=== PATIENT | female | born 1990 | race African-American/Black ===

== ENCOUNTER 2020-12-30 11:54 | Inpatient (IN) ==
[2020-12-30] MEDS ORDERED: SODIUM CHLORIDE 0.9% 1000ML 1,000 ML IV ONE (12:22)
--- NOTE | 2020-12-30 12:28 | Emergency Department Note ---
History of Present Illness General Chief complaint: Hyperglycemia Stated complaint: HYPERGLYCEMIA Time Seen by Provider: 12/30/20 12:13 Source: patient Mode of arrival: ambulatory Limitations: no limitations History of Present Illness This patient is a 30-year-old type I diabetic comes in after having hyperglycemia. She said she change her pump site overnight realized when she was tailgating that she was not getting insulin there was liquid around the site. And she removed it and realized the cannula was not under the skin. She tried to go back to her hotel but could not get there because of traffic so she came here she is not try to take any corrective insulin as she had none with her. She has had some nausea and emesis x1. No chest pain or shortness of breath. No exposure to Covid she was feeling fine prior to this. She has been vaccinated. She has had some frequency of urination. She tells me she has been in DKA as a child but does not feel she is likely in DKA Home Medications Medication Instructions Recorded Confirmed Type Insulin Aspart (Novolog) 100 unit SC DIRECTED #0 08/03/09 12/30/20 History buspirone 10 mg tablet 10 mg PO TID 12/30/20 12/30/20 History Allergies Allergy/AdvReac Type Severity Reaction Status Date / Time peanut Allergy Severe ANAPHYLAXIS Verified 12/30/20 14:36 Past Med/Surg History Family History Mother Asthma Social History Smoking Status: Never smoker Hx Alcohol Use: Yes Hx Substance Use: Yes Feels Safe at Home: Yes Immunizations: Past menstrualtype 1 diabetes Social [place] is in town tailg[place] and recruiting Review of Systems A total of 10 systems reviewed and were otherwise negative Physical Exam Vital Signs Vital Signs - 24 hr 12/30/20 12:00 12/30/20 13:06 12/30/20 13:07 Temperature 36.6 C Temperature Source Oral Pulse Rate 124 H 129 H Pulse Rate [Right Finger] 129 H Pulse Rhythm Regular Pulse Rhythm [Right Finger] Pulse Strength Normal Pulse Strength [Right Finger] Respiratory Rate 18 21 Respiratory Effort / Characteristics Non-Labored Spontaneous Non-Labored Spontaneous Respiratory Depth Normal Normal Respiratory Pattern Regular Regular Blood Pressure 128/71 Blood Pressure [Right Arm] 127/76 Blood Pressure Mean 90 Blood Pressure Mean [Right Arm] 93 Blood Pressure Position Lying Blood Pressure Position [Right Arm] Sitting Pulse Oximetry 99 99 99 Oxygen Delivery Method Room Air Room Air Room Air Sepsis Recent Fever Within 48 Hours No Sepsis New/Unexplained Change in Mental Status N/A Sepsis Action Taken by Nursing No Action Required 12/30/20 14:00 Temperature Temperature Source Pulse Rate Pulse Rate [Right Finger] 122 H Pulse Rhythm Pulse Rhythm [Right Finger] Regular Pulse Strength Pulse Strength [Right Finger] Normal Respiratory Rate 20 Respiratory Effort / Characteristics Non-Labored Spontaneous Respiratory Depth Normal Respiratory Pattern Regular Blood Pressure Blood Pressure [Right Arm] 98/46 L Blood Pressure Mean Blood Pressure Mean [Right Arm] 63 Blood Pressure Position Blood Pressure Position [Right Arm] Lying Pulse Oximetry 98 Oxygen Delivery Method Room Air Sepsis Recent Fever Within 48 Hours Sepsis New/Unexplained Change in Mental Status Sepsis Action Taken by Nursing General: Well developed well nourished young female who appears in no acute distress, breathing comfortably on room air. Normal speech HEENT: Normal cephalic atraumatic. Pupils are equal round and reactive to light. Extraocular movements are intact. Oropharynx is pink with moist mucous membranes. No swelling of the mouth lips or tongue. Neck: Supple with a midline trachea. No meningeal signs or stiffness, no JVD or bruits. No Stridor. Chest: Clear to auscultation bilaterally. No wheezes or rhonchi. No increased work of breathing. Heart: Tachycardic but regular rate and rhythm without murmurs or gallops. Abdomen: Soft nontender, nondistended without rebound guarding or rigidity. Extremities: No cyanosis clubbing or edema. No calf tenderness or assymetry Spine/Back. Non tender to palpation. No CVA tenderness Skin: Good turgor without rashes. Neurologic exam: Cranial nerves two through 12 are intact. Motor and sensation are intact and symmetrical throughout. Course Administered Medications Insulin Human Regular 250 (units/ Sodium Chloride) 250 mls @ 4.7 mls/hr IV .Q24H [facility]; Protocol Stop: 01/29/21 13:44 Last Titration: 12/30/20 16:54 Dose: 4.7 units/hr, 4.7 mls/hr Documented by: [id number] Cosigned by: [id number] Titration: 12/30/20 16:22 Dose: 0 units/hr, 0 mls/hr Documented by: [id number] Cosigned by: [id number] Titration: 12/30/20 15:23 Dose: 7.8 units/hr, 7.8 mls/hr Documented by: [id number] Cosigned by: [id number] Admin: 12/30/20 14:20 Dose: 9.8 units/hr, 9.8 mls/hr Documented by: [id number] Cosigned by: [id number] Potassium Chloride/Dextrose/Sod Cl (D5w And 1/2nss + 20meq Kcl) 20 meq in 1,000 mls @ 150 mls/hr IV .Q6H40M [facility] Stop: 01/29/21 16:44 Last Admin: 12/30/20 16:54 Dose: 150 mls/hr Documented by: [id number] Discontinued Medications Sodium Chloride (Nss 1000ml) 1,000 mls @ 999 mls/hr IV .Q1H1M ONE Stop: 12/30/20 13:22 Last Infusion: 12/30/20 14:11 Dose: 0 mls/hr Documented by: [id number] Admin: 12/30/20 12:37 Dose: 999 mls/hr Documented by: [id number] Potassium Chloride/Sodium Chloride (1/2 Nss + 20meq Kcl 1000ml) 20 meq in 1,000 mls @ 150 mls/hr IV .Q6H40M [facility] Stop: 01/29/21 13:59 Last Admin: 12/30/20 14:20 Dose: 150 mls/hr Documented by: [id number] Insulin Aspart (Insulin Aspart Per Unit) 10 units SC NOW ONE Stop: 12/30/20 12:31 Last Admin: 12/30/20 12:37 Dose: 10 units Documented by: [id number] Cosigned by: [id number] Insulin Human Regular (Novolin-R Bolus From Bag) 5 units IV ONE ONE Stop: 12/30/20 14:16 Last Admin: 12/30/20 14:25 Dose: 5 units Documented by: [id number] Cosigned by: [id number] Ondansetron HCl (Ondansetron Inj 2 Mg/Ml 2 Ml Vial) 4 mg IV NOW STA Stop: 12/30/20 13:03 Last Admin: 12/30/20 13:04 Dose: 4 mg Documented by: [id number] Critical Care Time Critical Care Time: Yes Total Critical Care Time: 30 Due to the patient's diabetic ketoacidosis, tachycardia, need for IV fluids IV insulin frequent blood testing and monitoring, I have personally spent greater than 30 minutes of critical care time in the direct management of this patient. This includes bedside care, interpretation of diagnostic studies, and testing, discussion with consultants, patient, and family members, and other required patient management activities. This 30 minutes is in excess of all separately billable procedures. Medical Decision Making Differential Diagnosis DKA, hyperglycemia, dehydration, electrolyte or metabolic abnormality, infection Medical Records Attestation: I reviewed the patient's medical records. Home Medications Current Medication List: was personally reviewed by me Laboratory Data Attestation: I reviewed the patient's lab results. Result diagrams: 12/30/20 12:50 12/30/20 12:50 Lab Results 12/30/20 12/30/20 12/30/20 Range/Units 12:14 12:15 12:50 WBC 12.41 H (4.8-10.8) K/uL RBC 4.76 (4.2-5.4) M/uL Hgb 12.1 (12.0-16.0) g/dL Hct 39.1 (37-47) % MCV 82.1 (80-100) fL MCH 25.4 (25-34) pg MCHC 30.9 L (32-36) g/dL RDW Std Deviation 44.9 (36.4-46.3) fL RDW Coeff of [place] 14.9 H (11.5-14.5) % Plt Count 275 (130-400) K/uL MPV 10.3 (7.4-10.4) fL Immature Gran % (Auto) 0.4 % Neut % (Auto) 83.2 % Lymph % (Auto) 9.8 % [place] % (Auto) 5.9 % Eos % (Auto) 0.5 % Baso % (Auto) 0.2 % Neut # (Auto) 10.33 H (1.4-6.5) K/uL Lymph # (Auto) 1.22 (1.2-3.4) K/uL [place] # (Auto) 0.73 H (0.11-0.59) K/uL Eos # (Auto) 0.06 (0-0.5) K/uL Baso # (Auto) 0.02 (0-0.2) K/uL Immature Gran # (Auto) 0.05 H (0.00-0.02) K/uL VBG pH (7.36-7.41) VBG pCO2 (38-50) mmHg VBG pO2 mmHg VBG HCO3 mmol/L VBG O2 Saturation % VBG Base Excess mEq/L Barometric Pressure mm/Hg Sodium (136-145) mmol/L Potassium (3.5-5.1) mmol/L Chloride (98-107) mmol/L Carbon Dioxide (21-32) mmol/L Anion Gap (3-11) BUN (7-18) mg/dl Creatinine (0.6-1.2) mg/dl Est Cr Clr Drug Dosing ml/min Est GFR ( Amer) ml/min Est GFR (Non-Af Amer) ml/min BUN/Creatinine Ratio (10-20) Glucose (70-99) mg/dl POC Glucose 560 H* (70-99) mg/dl Calcium (8.5-10.1) mg/dl Total Bilirubin (0.2-1) mg/dl AST (15-37) U/L ALT (12-78) U/L Alkaline Phosphatase (45-117) U/L Total Protein (6.4-8.2) gm/dl Albumin (3.4-5.0) gm/dl Globulin (2.5-4.0) gm/dl Albumin/Globulin Ratio (0.9-2) Lipase (73-393) U/L Beta-Hydroxybutyric Acd (0.2-2.81) mg/dl HCG, Qual (Negative) Urine Color Yellow Urine Appearance Clear (Clear) Urine pH 5.0 (4.5-7.5) Ur Specific [place] 1.029 (1.000-1.030) Urine Protein Negative (Negative) Urine Glucose (UA) 3+ H (Negative) Urine Ketones 4+ H (Negative) Urine Blood Negative (Negative) Urine Nitrite Negative (Negative) Urine Bilirubin Negative (Negative) Urine Urobilinogen Negative (Negative) Ur Leukocyte Esterase Negative (Negative) 12/30/20 12/30/20 12/30/20 Range/Units 12:50 12:50 12:50 WBC (4.8-10.8) K/uL RBC (4.2-5.4) M/uL Hgb (12.0-16.0) g/dL Hct (37-47) % MCV (80-100) fL MCH (25-34) pg MCHC (32-36) g/dL RDW Std Deviation (36.4-46.3) fL RDW Coeff of Yanira (11.5-14.5) % Plt Count (130-400) K/uL MPV (7.4-10.4) fL Immature Gran % (Auto) % Neut % (Auto) % Lymph % (Auto) % [place] % (Auto) % Eos % (Auto) % Baso % (Auto) % Neut # (Auto) (1.4-6.5) K/uL Lymph # (Auto) (1.2-3.4) K/uL [place] # (Auto) (0.11-0.59) K/uL Eos # (Auto) (0-0.5) K/uL Baso # (Auto) (0-0.2) K/uL Immature Gran # (Auto) (0.00-0.02) K/uL VBG pH 7.23 L (7.36-7.41) VBG pCO2 35 L (38-50) mmHg VBG pO2 33 mmHg VBG HCO3 14 mmol/L VBG O2 Saturation < 60.0 % VBG Base Excess -12.1 mEq/L Barometric Pressure 727.2 mm/Hg Sodium 130 L (136-145) mmol/L Potassium 4.8 (3.5-5.1) mmol/L Chloride 97 L (98-107) mmol/L Carbon Dioxide 16 L (21-32) mmol/L Anion Gap 17.0 H (3-11) BUN 15 (7-18) mg/dl Creatinine 1.41 H (0.6-1.2) mg/dl Est Cr Clr Drug Dosing 74.9 ml/min Est GFR ( Amer) 57.4 ml/min Est GFR (Non-Af Amer) 49.5 ml/min BUN/Creatinine Ratio 10.6 (10-20) Glucose 590 H* (70-99) mg/dl POC Glucose (70-99) mg/dl Calcium 9.4 (8.5-10.1) mg/dl Total Bilirubin 0.6 (0.2-1) mg/dl AST 16 (15-37) U/L ALT 17 (12-78) U/L Alkaline Phosphatase 140 H (45-117) U/L Total Protein 8.2 (6.4-8.2) gm/dl Albumin 3.7 (3.4-5.0) gm/dl Globulin 4.5 H (2.5-4.0) gm/dl Albumin/Globulin Ratio 0.8 L (0.9-2) Lipase 63 L (73-393) U/L Beta-Hydroxybutyric Acd 65.27 H (0.2-2.81) mg/dl HCG, Qual Negative (Negative) Urine Color Urine Appearance (Clear) Urine pH (4.5-7.5) Ur Specific [place] (1.000-1.030) Urine Protein (Negative) Urine Glucose (UA) (Negative) Urine Ketones (Negative) Urine Blood (Negative) Urine Nitrite (Negative) Urine Bilirubin (Negative) Urine Urobilinogen (Negative) Ur Leukocyte Esterase (Negative) 12/30/20 12/30/20 Range/Units 13:53 15:21 WBC (4.8-10.8) K/uL RBC (4.2-5.4) M/uL Hgb (12.0-16.0) g/dL Hct (37-47) % MCV (80-100) fL MCH (25-34) pg MCHC (32-36) g/dL RDW Std Deviation (36.4-46.3) fL RDW Coeff of Yanira (11.5-14.5) % Plt Count (130-400) K/uL MPV (7.4-10.4) fL Immature Gran % (Auto) % Neut % (Auto) % Lymph % (Auto) % [place] % (Auto) % Eos % (Auto) % Baso % (Auto) % Neut # (Auto) (1.4-6.5) K/uL Lymph # (Auto) (1.2-3.4) K/uL [place] # (Auto) (0.11-0.59) K/uL Eos # (Auto) (0-0.5) K/uL Baso # (Auto) (0-0.2) K/uL Immature Gran # (Auto) (0.00-0.02) K/uL VBG pH (7.36-7.41) VBG pCO2 (38-50) mmHg VBG pO2 mmHg VBG HCO3 mmol/L VBG O2 Saturation % VBG Base Excess mEq/L Barometric Pressure mm/Hg Sodium (136-145) mmol/L Potassium (3.5-5.1) mmol/L Chloride (98-107) mmol/L Carbon Dioxide (21-32) mmol/L Anion Gap (3-11) BUN (7-18) mg/dl Creatinine (0.6-1.2) mg/dl Est Cr Clr Drug Dosing ml/min Est GFR ( Amer) ml/min Est GFR (Non-Af Amer) ml/min BUN/Creatinine Ratio (10-20) Glucose (70-99) mg/dl POC Glucose 466 H* 307 H* (70-99) mg/dl Calcium (8.5-10.1) mg/dl Total Bilirubin (0.2-1) mg/dl AST (15-37) U/L ALT (12-78) U/L Alkaline Phosphatase (45-117) U/L Total Protein (6.4-8.2) gm/dl Albumin (3.4-5.0) gm/dl Globulin (2.5-4.0) gm/dl Albumin/Globulin Ratio (0.9-2) Lipase (73-393) U/L Beta-Hydroxybutyric Acd (0.2-2.81) mg/dl HCG, Qual (Negative) Urine Color Urine Appearance (Clear) Urine pH (4.5-7.5) Ur Specific [place] (1.000-1.030) Urine Protein (Negative) Urine Glucose (UA) (Negative) Urine Ketones (Negative) Urine Blood (Negative) Urine Nitrite (Negative) Urine Bilirubin (Negative) Urine Urobilinogen (Negative) Ur Leukocyte Esterase (Negative) ECG Data Attestation: I personally reviewed and interpreted this ECG as follows: Indication: + toxicologic Rate (beats per minute): 127 Rhythm: + sinus tachycardia ECG Intervals/blocks: + Normal QRS and + Normal QT ECG [place]: + Normal ECG ST segments: + Normal ST segments ECG Findings: no PACs or no PVCs Comparison ECG Date: from (08/04/20) Change: no significant change MDM Narrative This patient comes in as described above. she is a type I diabetic and due to issues with her insertion site has not gotten insulin overnight. Her blood sugar on fingerstick was 560. IV access was established and she was hydrated with 1 L IV normal saline bolus. We did give her 10 units of NovoLog subcu. Multiple blood testing was obtained and she was reassessed. She is placed on a classroom monitor. She was initially tachycardic. She was given the IV fluids her blood sugar upon recheck was still elevated in the 400s she was given additional insulin to start on insulin drip. Her blood work does show an anion gap acidosis consistent with DKA. She will need to be admitted for IV hydration and treatment of her DKA was started on the DKA protocol. I have consulted the [facility] hospitalist Continuous cardiac monitoring: Orders placed in EMR for continuous classroom monitor. Home interpretation the patient was noted to be in sinus tachycardia with a rate of 120 Impression & Plan DKA (diabetic ketoacidosis), Diabetes, Displacement of insulin pump, Acute dehydration Discharge Plan Visit Data Chief Complaint: Hyperglycemia Stated Complaint: HYPERGLYCEMIA ED Provider: Jayant Mendoza Discharge Problem: DKA (diabetic ketoacidosis), Diabetes, Displacement of insulin pump, Acute dehydration Patient Disposition: Admitted As Inpatient Discharge Instructions Interventions: ED Discharge Assessment Last Done: 12/30/20 19:07
[2020-12-30] MEDS ORDERED: INSULIN ASPART PER UNIT SC ONE (12:30)
[2020-12-30 12:44] LABS: Appearance Urine Clear (Clear); Bilirubin Urine Negative (Negative); Blood Urine Negative (Negative); Color Urine Yellow; Glucose Urine UA 3+ (Negative); Ketones Urine 4+ (Negative); Leukocyte Esterase Urine Negative (Negative); Nitrite Urine Negative (Negative); Protein Urine Negative (Negative); Specific Gravity Urine 1.029 (1.000-1.030); Urobilinogen Urine Negative (Negative)
[2020-12-30] MEDS ORDERED: ONDANSETRON INJ 2 MG/ML 2 ML VIAL IV STA (13:02)
[2020-12-30 13:03] LABS: Basophils # (auto) 0.02 K/uL (0-0.2); Basophils % (auto) 0.2 %; Eosinophils # (auto) 0.06 K/uL (0-0.5); Eosinophils % (auto) 0.5 %; Hematocrit (blood only) 39.1 % (37-47); Hemoglobin 12.1 g/dL (12.0-16.0); Immature Granulocytes # (auto) 0.05 K/uL (0.00-0.02); Immature Granulocytes % (auto) 0.4 %; Lymphocytes # (auto) 1.22 K/uL (1.2-3.4); Lymphocytes % (auto) 9.8 %; Mean Corpuscular Hemoglobin 25.4 pg (25-34); Mean Corpuscular Hgb Conc 30.9 g/dL (32-36); Mean Corpuscular Volume 82.1 fL (80-100); Mean Platelet Volume 10.3 fL (7.4-10.4); Monocytes # (auto) 0.73 K/uL (0.11-0.59); Monocytes % (auto) 5.9 %; Neutrophils # (auto) 10.33 K/uL (1.4-6.5); Neutrophils % (auto) 83.2 %; Platelet Count 275 K/uL (130-400); RDW Coefficient of Variation 14.9 % (11.5-14.5); RDW Standard Deviation 44.9 fL (36.4-46.3); Red Blood Count 4.76 M/uL (4.2-5.4); White Blood Count 12.41 K/uL (4.8-10.8)
[2020-12-30 13:05] LABS: Base Excess VBG -12.1 mEq/L; HCO3 VBG 14 mmol/L; Oxygen Saturation VBG < 60.0 %; PCO2 VBG 35 mmHg (38-50); PO2 VBG 33 mmHg; pH VBG 7.23 (7.36-7.41)
[2020-12-30 13:32] LABS: Albumin Globulin Ratio 0.8 (0.9-2); Albumin Level 3.7 gm/dl (3.4-5.0); BUN Creatinine Ratio 10.6 (10-20); Bilirubin,Total 0.6 mg/dl (0.2-1); Calcium 9.4 mg/dl (8.5-10.1); Creatinine Clr Calc Pharmacy 74.9 ml/min; Est GFR (African American) 57.4 ml/min; Est GFR (Non-African American) 49.5 ml/min; Globulin 4.5 gm/dl (2.5-4.0); Potassium 4.8 mmol/L (3.5-5.1); Total Protein 8.2 gm/dl (6.4-8.2)
[2020-12-30 13:42] LABS: Pregnancy Test, Serum Negative (Negative)
[2020-12-30] MEDS ORDERED: GLUCOSE 10 TABS/TUBE PO PRN (13:42)
[2020-12-30] MEDS ORDERED: CARBOHYDRATES FOR HYPOGLYCEMIA PO PRN (13:42)
[2020-12-30] MEDS ORDERED: STAT IV Infusion **Titration per Protocol STA ×3 (13:42→15:37)
[2020-12-30] MEDS ORDERED: DKA GOAL RANGE 150-250 mg/dl ONE ×2 (13:42→19:09)
[2020-12-30] MEDS ORDERED: GLUCOSE 40% GEL 15 GM TUBE PO PRN (13:42)
[2020-12-30] MEDS ORDERED: DEXTROSE 50% 50 ML SYRINGE IV PRN (13:42)
[2020-12-30] MEDS ORDERED: GLUCAGON FOR INJ 1 MG VIAL SQ PRN (13:42)
[2020-12-30] MEDS ORDERED: INSULIN REGULAR 250 UNITS in SODIUM CHLORIDE 0.9% 247.5 ML IV SCH ×2 (13:45→19:09)
[2020-12-30 13:59] LABS: Beta-Hydroxybutyrate 65.27 mg/dl (0.2-2.81)
[2020-12-30] MEDS ORDERED: SODIUM CHLOR 0.45% + 20MEQ KCL 20 MEQ/1,000 ML BAG IV SCH (14:00)
[2020-12-30] MEDS ORDERED: NovoLIN-R BOLUS FROM BAG IV ONE (14:15)
--- NOTE | 2020-12-30 14:36 | History & Physical Report ---
Date of Service December 30, 2020 Assessment & Plan (1) No significant past surgical history: (2) DKA (diabetic ketoacidosis): Plan: Diabetic ketoacidosis Secondary to insulin pump malfunction H/O type 1 diabetes mellitus Continue IV insulin as per protocol Monitor electrolytes, BMP N.p.o. for now Consulted glycemic pharmacist for assistance pH greater than 6.9, no indication for bicarbonate drip Monitor blood glucose levels Check HbA1c Pseudohyponatremia Corrected sodium levels within normal limits Monitor BMP Acute kidney injury Creatinine 1.4 Continue IV fluids Monitor renal function Avoid nephrotoxic agents as able Mild leukocytosis Likely secondary to above Obtain blood cultures Sinus tachycardia Likely secondary to DKA Monitor on telemetry Anxiety disorder Continue buspirone DVT prophylaxis SCDs for now CODE STATUS Full code History of Present Illness Chief Complaint: Hyperglycemia Primary Care Provider: NO PCP Patient is a 30-year-old female with history of type 1 diabetes mellitus on insulin pump, anxiety disorder and no other significant medical problems presen ts with history of uncontrolled blood glucose levels. Patient states that she changed her pump site yesterday but did not realize that the needle was bent and the pump was nonfunctional. She states feeling very fatigued, has dry mouth and reports generalized abdominal discomfort associated with nausea and vomiting. Patient is from [place] and currently tailgating and noticed that her blood s ugar levels were in 200s this morning and bolused herself with insulin but was unaware that the pump was working appropriately. She admits to having increased urinary frequency which she believes is secondary to increased glucose levels. Denies any history of chest pain, SOB, palpitations, dizziness, pedal edema, cough, fever, chills, headache, change in vision, blood in stools, diarrhea, dysuria, hematuria, recent change in medications. Allergies Allergy/AdvReac Type Severity Reaction Status Date / Time peanut Allergy Severe ANAPHYLAXIS Verified 12/30/20 14:36 Home Medications Medication Instructions Recorded Confirmed Type Insulin Aspart (Novolog) 100 unit SC DIRECTED #0 08/03/09 12/30/20 History buspirone 10 mg tablet 10 mg PO TID 12/30/20 12/30/20 History Past Med/Surg History Family History Mother Asthma Social History Smoking Status: Never smoker Hx Alcohol Use: Yes Hx Substance Use: Yes Feels Safe at Home: Yes Review of Systems Review of Systems: All systems reviewed & are unremarkable except as noted in Subjective Physical Exam Physical Exam: Physical Exam: Vitals signs as noted above General Appearance:Moderately built and nourished, no apparent distress Head: normocephalic, Atraumatic Eyes: normal inspection, EOMI Neck: supple, Trachea midline Respiratory/Chest: Normal breath sounds, CTA, No accessory muscle use Cardiovascular: S1, S2, + Tachycardia, No murmur Abdomen/GI:Soft, Non tender, Bowel sounds present Extremities/Musculoskeletal:normal inspection, no edema Neurologic/Psych:AAOX3, grossly no focal neurological deficits Skin: normal color, warm Results & Data Results & Data ([facility]) Vital Signs (Past 12 Hours) Vital Signs Temp Pulse Pulse Resp BP BP Pulse Ox 12/30/20 14:00 122 H 20 98/46 L 98 12/30/20 13:07 129 H 21 99 12/30/20 13:06 129 H 21 127/76 99 12/30/20 12:00 36.6 C 124 H 18 128/71 99 Laboratory Results Short CBC 12/30/20 Range/Units 12:50 WBC 12.41 H (4.8-10.8) K/uL Hgb 12.1 (12.0-16.0) g/dL Hct 39.1 (37-47) % Plt Count 275 (130-400) K/uL BMP 12/30/20 12:50 Sodium 130 L Potassium 4.8 Chloride 97 L Carbon Dioxide 16 L BUN 15 Creatinine 1.41 H Glucose 590 H* Calcium 9.4 Liver Function 12/30/20 Range/Units 12:50 Total Bilirubin 0.6 (0.2-1) mg/dl AST 16 (15-37) U/L ALT 17 (12-78) U/L Alkaline Phosphatase 140 H (45-117) U/L Albumin 3.7 (3.4-5.0) gm/dl Urine 12/30/20 Range/Units 12:15 Urine Color Yellow Urine Appearance Clear (Clear) Urine pH 5.0 (4.5-7.5) Ur Specific [place] 1.029 (1.000-1.030) Urine Protein Negative (Negative) Urine Glucose (UA) 3+ H (Negative) ECG Additional Comments: EKG: Sinus tachycardia. Nonspecific T wave changes. QTc 406.
[2020-12-30] MEDS ORDERED: D5W AND 1/2NSS + 20MEQ KCL 20 MEQ/1,000 ML BAG IV SCH (16:45)
[2020-12-30] MEDS: D5W AND 1/2NSS + 20MEQ KCL 20 MEQ/1,000 ML BAG IV SCH ×2 (16:54→22:08)
[2020-12-30] MEDS ORDERED: POLYETHYLENE (MIRALAX) 17 GM PACK PO PRN (19:09)
[2020-12-30] MEDS ORDERED: ONDANSETRON INJ 2 MG/ML 2 ML VIAL IV PRN (19:09)
[2020-12-30] MEDS ORDERED: PENDING D5 1/2NS+20mEq KCL IVF SCH (19:09)
[2020-12-30] MEDS ORDERED: POTASSIUM CHLORIDE 20 MEQ in SODIUM CHLORIDE 0.45 % 1,000 ML IV SCH (19:09)
[2020-12-30] MEDS ORDERED: INSULIN ASPART 100 UNITS/ML 3 ML PEN SC SCH (19:09)
[2020-12-30] MEDS ORDERED: FAMOTIDINE 20 MG in SYRINGE 3 ML IV PRN (19:09)
[2020-12-30] MEDS ORDERED: PHARMACY GLYCEMIC MGMT CONSULT PRN (19:09)
[2020-12-30] MEDS ORDERED: ACETAMINOPHEN 325 MG TAB PO PRN (19:09)
[2020-12-30] MEDS: INSULIN ASPART 100 UNITS/ML 3 ML PEN SC SCH ×2 (19:55→22:05)
[2020-12-30 20:02] LABS: BUN Creatinine Ratio 8.7 (10-20); Calcium 8.1 mg/dl (8.5-10.1); Creatinine Clr Calc Pharmacy 85.8 ml/min; Est GFR (African American) 67.7 ml/min; Est GFR (Non-African American) 58.4 ml/min; Phosphorus 2.3 mg/dl (2.5-4.9); Potassium 4.3 mmol/L (3.5-5.1)
[2020-12-30] MEDS ORDERED: busPIRone 5 MG TAB PO SCH (21:00)
[2020-12-30 22:46] LABS: BUN Creatinine Ratio 9.6 (10-20); Creatinine Clr Calc Pharmacy 103.5 ml/min; Est GFR (African American) 84.9 ml/min; Est GFR (Non-African American) 73.2 ml/min; Magnesium 1.9 mg/dl (1.8-2.4); Phosphorus 2.5 mg/dl (2.5-4.9); Potassium 4.4 mmol/L (3.5-5.1)
[2020-12-31 03:36] LABS: Hematocrit (blood only) 32.8 % (37-47); Hemoglobin 10.3 g/dL (12.0-16.0); Mean Corpuscular Hemoglobin 25.3 pg (25-34); Mean Corpuscular Hgb Conc 31.4 g/dL (32-36); Mean Corpuscular Volume 80.6 fL (80-100); Mean Platelet Volume 10.2 fL (7.4-10.4); Platelet Count 273 K/uL (130-400); RDW Coefficient of Variation 15.2 % (11.5-14.5); RDW Standard Deviation 44.1 fL (36.4-46.3); Red Blood Count 4.07 M/uL (4.2-5.4); White Blood Count 13.65 K/uL (4.8-10.8)
[2020-12-31 04:42] LABS: Albumin Level 2.6 gm/dl (3.4-5.0); BUN Creatinine Ratio 7.4 (10-20); Calcium 8.3 mg/dl (8.5-10.1); Creatinine Clr Calc Pharmacy 94.3 ml/min; Est GFR (African American) 75.8 ml/min; Est GFR (Non-African American) 65.4 ml/min; Potassium 4.2 mmol/L (3.5-5.1)
[2020-12-31 04:49] LABS: Albumin Globulin Ratio 0.7 (0.9-2); Bilirubin,Total 0.4 mg/dl (0.2-1); Globulin 3.7 gm/dl (2.5-4.0); Phosphorus 2.2 mg/dl (2.5-4.9); Total Protein 6.3 gm/dl (6.4-8.2)
[2020-12-31] MEDS: D5W AND 1/2NSS + 20MEQ KCL 20 MEQ/1,000 ML BAG IV SCH (05:50)
[2020-12-31 08:01] LABS: Calcium 8.3 mg/dl (8.5-10.1); Creatinine Clr Calc Pharmacy 96.9 ml/min; Est GFR (African American) 78.3 ml/min; Est GFR (Non-African American) 67.6 ml/min; Phosphorus 2.1 mg/dl (2.5-4.9); Potassium 3.9 mmol/L (3.5-5.1)
[2020-12-31] MEDS ORDERED: SODIUM PHOSPHATE 3 MMOL/1 ML 5 ML VIAL IV ONE (08:18)
[2020-12-31] MEDS ORDERED: PHARMACY GLYCEMIC MGMT CONSULT PRN (08:28)
[2020-12-31] MEDS ORDERED: D5NSS + 20MEQ KCL 20 MEQ/1,000 ML BAG IV SCH (08:30)
[2020-12-31] MEDS ORDERED: SODIUM PHOSPHATE 30 MMOL in SODIUM CHLORIDE 0.9% 500 ML IV ONE (08:30)
[2020-12-31] MEDS: INSULIN ASPART 100 UNITS/ML 3 ML PEN SC SCH (08:45)
--- NOTE | 2020-12-31 08:49 | Pharmacy Report ---
Pharmacy Glycemic Short Note 2 - Date of Service December 31, 2020 - Glycemic Short BSG Results (Last 24 hours): 12/30/20 12/30/20 12/30/20 12:14 12:50 13:53 Glucose 590 H* POC Glucose 560 H* 466 H* 12/30/20 12/30/20 12/30/20 15:21 16:21 17:33 Glucose POC Glucose 307 H* 192 H 160 H 12/30/20 12/30/20 12/30/20 18:18 19:31 19:32 Glucose 158 H POC Glucose 160 H 146 H 12/30/20 12/30/20 12/30/20 20:36 21:45 22:22 Glucose 126 H POC Glucose 132 H 113 H 12/30/20 12/30/20 12/31/20 22:31 22:59 00:10 Glucose POC Glucose 114 H 172 H 205 H 12/31/20 12/31/20 12/31/20 01:51 03:05 03:27 Glucose Cancelled POC Glucose 223 H 174 H 12/31/20 12/31/20 12/31/20 04:20 04:59 07:02 Glucose 192 H POC Glucose 170 H 160 H 12/31/20 07:19 Glucose 182 H POC Glucose OUTPATIENT ANTIDIABETIC REGIMEN: * Novolog via insulin pump ASSESSMENT: * 30yo T1DM female with pump malfunction resulting in DKA. * Pt initiated on IV insulin infusion per DKA protocol. * Fluids adjusted per labs/electrolytes and BSGs. * A1c pending. * Pt's family is supposed to bring in patient's pump supplies today. Pt can re sume her pump when supplies arrive and stop IV insulin infusion once pump is confirmed to be in working condition. PLAN FOR INPATIENT GLYCEMIC CONTROL & transition to outpatient: Continue IV insulin infusion per DKA protocol Once supplies arrive- Pt is to manage BSGs with insulin pump per outpatient settings. * RN will have patient read and sign agreement [id number] Insulin Pump Therapy Patient Agreement. * RN will provide and explain form [id number] Flowsheet for Patient * Patient will document their insulin dose given on [id number] which is kept at the bedside, available to caregivers upon request, and which becomes part of the permanent medical record. If at any time the patients condition evidences that he/she is not able to manage the insulin pump (i.e. frequent hypo/hyperglycemia) Pharmacy will assume glycemic control by discontinuing the pump & managing with SQ basal bolus insulin regimen for the interim.
--- NOTE | 2020-12-31 09:40 | Hospitalist Progress Note ---
Date of Service December 31, 2020 Assessment & Plan (1) No significant past surgical history: (2) DKA (diabetic ketoacidosis): Plan: Diabetic ketoacidosis Secondary to insulin pump malfunction H/O type 1 diabetes mellitus Continue IV insulin as per protocol Monitor electrolytes, BMP N.p.o. for now Consulted glycemic pharmacist for assistance pH greater than 6.9, no indication for bicarbonate drip Monitor blood glucose levels Check [id number] 12/31/2020 The patient has been feeling a lot better and wants to leave the hospital Blood sugar has been controlled and no anion gap noted and she remains asymptomatic Discussed with the glycemic pharmacist and she will be discharged home this morning She mentioned that she knows how to take care of her diabetes and she has them pump which will be working correctly Pseudohyponatremia Corrected sodium levels within normal limits Monitor BMP Acute kidney injury Creatinine 1.4 Continue IV fluids Monitor renal function Avoid nephrotoxic agents as able Mild leukocytosis Likely secondary to above Obtain blood cultures Sinus tachycardia Likely secondary to DKA Monitor on telemetry Anxiety disorder Continue buspirone DVT prophylaxis SCDs for now CODE STATUS Full code Admission and Anticipated Discharge Date Admission Date: December 30, 2020 Subjective 12/31/2020 The patient was seen and examined in emergency room in the [facility] area She was admitted yesterday with insulin pump failure with mildly elevated blood sugar and mild DKA Was on insulin drip and the condition has improved Denies any symptoms as of this morning and wants to be discharged Review of Systems Review of Systems: All systems reviewed and are unremarkable except as noted below Physical Exam Physical Exam: Sitting at the edge of the bed without any acute distress Constitutional: well developed, well nourished and + obese; not ill appearing Eyes: PERRL, conjunctivae normal, anicteric sclerae ENMT: external ear and nose normal, oropharynx normal Neck: trachea midline, no thyromegaly Respiratory: no respiratory distress Auscultation: lungs clear to auscultation bilaterally Cardiovascular: Rate/Rhythm: regular rate and regular rhythm; not tachycardic Heart Sounds: normal S1 and normal S2; no murmur Extremities: no edema Gastrointestinal (Abdomen): Inspection/Auscultation: abdomen not distended Percussion/Palpation: abdomen soft; abdomen nontender Musculoskeletal: No acute arthritis in any joint Neurologic: Alert, awake and oriented x3. No focal sensory and motor deficit appreciated Psychiatric: A+Ox3, euthymic affect Lymphatic: no cervical or axillary lymphadenopathy Results & Data Results & Data ([facility]) Vital Signs (Past 12 Hours) Vital Signs Pulse Resp BP Pulse Ox 12/31/20 08:00 94 H 18 111/68 98 12/31/20 05:52 94 H 20 89/61 L 96 12/30/20 22:09 107 H 19 97/46 L 97 Laboratory Results Short CBC 12/30/20 12/31/20 Range/Units 12:50 03:27 WBC 12.41 H 13.65 H (4.8-10.8) K/uL Hgb 12.1 10.3 L (12.0-16.0) g/dL Hct 39.1 32.8 L (37-47) % Plt Count 275 273 (130-400) K/uL BMP 12/30/20 12/30/20 12/30/20 12:50 19:32 22:22 Sodium 130 L 139 D 140 Potassium 4.8 4.3 4.4 Chloride 97 L 110 H 111 H Carbon Dioxide 16 L 21 19 L BUN 15 11 10 Creatinine 1.41 H 1.23 H 1.02 Glucose 590 H* 158 H 126 H Calcium 9.4 8.1 L 8.0 L 12/31/20 12/31/20 12/31/20 03:27 04:20 07:19 Sodium Cancelled 137 136 Potassium Cancelled 4.2 3.9 Chloride Cancelled 110 H 109 H Carbon Dioxide Cancelled 22 21 BUN Cancelled 8 7 Creatinine Cancelled 1.12 1.09 Glucose Cancelled 192 H 182 H Calcium Cancelled 8.3 L 8.3 L Liver Function 12/30/20 12/31/20 12/31/20 Range/Units 12:50 03:27 04:20 Total Bilirubin 0.6 Cancelled 0.4 (0.2-1) mg/dl AST 16 Cancelled 10 L (15-37) U/L ALT 17 Cancelled 15 (12-78) U/L Alkaline Phosphatase 140 H Cancelled 100 (45-117) U/L Albumin 3.7 Cancelled 2.6 L (3.4-5.0) gm/dl Urine 12/30/20 Range/Units 12:15 Urine Color Yellow Urine Appearance Clear (Clear) Urine pH 5.0 (4.5-7.5) Ur Specific Viola 1.029 (1.000-1.030) Urine Protein Negative (Negative) Urine Glucose (UA) 3+ H (Negative) (1) DKA (diabetic ketoacidosis) Diabetes mellitus complication detail: without coma Diabetes mellitus type: type 1 Qualified Code(s): E10.10 - Type 1 diabetes mellitus with ketoacidosis without coma
--- NOTE | 2020-12-31 23:15 | Electrocardiogram Report ---
Test Reason : Blood Pressure : / mmHG Vent. Rate : 127 BPM Atrial Rate : 127 BPM P-R Int : 124 ms QRS Dur : 064 ms QT Int : 280 ms P-R-T Axes : 067 059 016 degrees QTc Int : 406 ms Sinus tachycardia Possible Left atrial enlargement Nonspecific ST abnormality Abnormal ECG When compared with ECG of 04-AUG-2009 11:22, No significant change was found Confirmed by Dennis Mcdonnell ([id number]) on 12/31/2020 11:15:16 PM Referred By: REFERRED SELF Confirmed By:Dennis Mcdonnell
[2021-01-01 06:51] LABS: Estimated Average Glucose 240 mg/dl
--- NOTE | 2021-01-01 07:59 | Discharge Summary ---
Date of Service January 01, 2021 Admission HPI Per Admitting Provider Patient is a 30-year-old female with history of type 1 diabetes mellitus on insulin pump, anxiety disorder and no other significant medical problems presents with history of uncontrolled blood glucose levels. Patient states that she changed her pump site yesterday but did not realize that the needle was bent and the pump was nonfunctional. She states feeling very fatigued, has dry mouth and reports generalized abdominal discomfort associated with nausea and vomiting. 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 She admits to having increased urinary frequency which she believes is secondary to increased glucose levels. Denies any history of chest pain, SOB, palpitations, dizziness, pedal edema, cough, fever, chills, headache, change in vision, blood in stools, diarrhea, dysuria, hematuria, recent change in medications. Admission Exam Per Admitting Provider Physical Exam: Physical Exam: Vitals signs as noted above General Appearance:Moderately built and nourished, no apparent distress Head: normocephalic, Atraumatic Eyes: normal inspection, EOMI Neck: supple, Trachea midline Respiratory/Chest: Normal breath sounds, CTA, No accessory muscle use Cardiovascular: S1, S2, + Tachycardia, No murmur Abdomen/GI:Soft, Non tender, Bowel sounds present Extremities/Musculoskeletal:normal inspection, no edema Neurologic/Psych:AAOX3, grossly no focal neurological deficits Skin: normal color, warm Principal Diagnosis Hyperglycemia,Mild DKA,Insulin Pump malfunction Discharge Exam Sitting at the edge of the bed without any acute distress Constitutional well developed, well nourished and + obese; not ill appearing Eyes PERRL, conjunctivae normal, anicteric sclerae ENMT external ear and nose normal, oropharynx normal Neck trachea midline, no thyromegaly Respiratory no respiratory distress Auscultation: lungs clear to auscultation bilaterally Cardiovascular Rate/Rhythm: regular rate and regular rhythm; not tachycardic Heart Sounds: normal S1 and normal S2; no murmur Extremities: no edema Gastrointestinal (Abdomen) Inspection/Auscultation: abdomen not distended Percussion/Palpation: abdomen soft; abdomen nontender Psychiatric A+Ox3, euthymic affect Lymphatic no cervical or axillary lymphadenopathy Discharge Data Allergies Allergy/AdvReac Type Severity Reaction Status Date / Time peanut Allergy Severe ANAPHYLAXIS Verified 12/30/20 14:36 Consultations 12/30/20 14:09 ED Decision to Admit Stat Hospital Course (1) No significant past surgical history: (2) DKA (diabetic ketoacidosis): Diabetic ketoacidosis Secondary to insulin pump malfunction H/O type 1 diabetes mellitus Continue IV insulin as per protocol Monitor electrolytes, BMP N.p.o. for now Consulted glycemic pharmacist for assistance pH greater than 6.9, no indication for bicarbonate drip Monitor blood glucose levels Check [id number] 12/31/2020 The patient has been feeling a lot better and wants to leave the hospital Blood sugar has been controlled and no anion gap noted and she remains asymptomatic Discussed with the glycemic pharmacist and she will be discharged home this morning She mentioned that she knows how to take care of her diabetes and she has them pump which will be working correctly Pseudohyponatremia Corrected sodium levels within normal limits Monitor BMP Acute kidney injury Creatinine 1.4 Continue IV fluids Monitor renal function Avoid nephrotoxic agents as able Mild leukocytosis Likely secondary to above Obtain blood cultures Sinus tachycardia Likely secondary to DKA Monitor on telemetry Anxiety disorder Continue buspirone DVT prophylaxis SCDs for now CODE STATUS Full code Total Time Total Time Spent Total Time Spent (In Minutes): 40 minutes Discharge Plan Discharge Items Patient Disposition: Home - Self-Care Reason For Visit: HYPERGLYCEMIA Discharge Diagnosis: Hyperglycemia,Mild DKA,Insulin Pump malfunction Condition on Discharge: Good Activity: Resume your previous activity Non-emergency contact: Primary Care Provider Call non-emergency contact if: you have any medication questions and your symptoms worsen Follow-up/Referrals: PCP,NO [Primary Care Provider] - (Please make an appointment with your PCP in 1 week) Diet: Carb Count or DM1 Addtl Attending Provider Instructions: Please have a follow up appointment with 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 in 1-2 weeks Use you Insulin Pump as directed Pending Studies at Discharge: No Stand-Alone Forms: [employer], Smoking Cessation Medications and DC Order Prescriptions: Continued Insulin Aspart (Novolog) INJECTION 100 unit SC DIRECTED Qty: 0 RF: 0 buspirone 10 mg tablet 10 mg PO TID RF: 0 Discharge Orders: Discharge Order (Routine); Ordered 12/31/20 Ordered By: Juan Santillan Admission Data Admit Date/Time: 12/30/20 15:27 Attending Provider: Juan Santillan Admit Provider: Paul Jorgensen Primary Care Provider: PCP,NO Other Providers: Paul Jorgensen Other Interventions: Discharge Summary Assessment (RN) Last Done: 12/31/20 09:40
== END 2020-12-31 09:50 | disposition home or self-care (01) | DRG 919 ==
LOC: ED 11:54 → EDINP 15:27 → SUATTDRO 15:27 → EDINP 19:07